=== PATIENT | male | born 1980 | race Caucasian/White ===

== ENCOUNTER 2018-04-29 07:44 | Emergency (ER) | payer OTHER ==
[2018-04-29 07:54] VITALS: BP 156/77
--- NOTE | 2018-04-29 08:44 | ED ---
Throat Pain/Nasal Congestion - HPI Summary HPI Summary: 38 yo WM c/o sore throat x 1 week, has 3 kids at home and sees white spots on his uvula and wants to know if its strep and whether if he is contagious - History of Current Complaint Chief Complaint: UCRespiratory Time Seen by Provider: 04/29/18 08:12 Hx Obtained From: Patient Onset/Duration: Sudden Onset, Lasting Days Associated Signs And Symptoms: Positive: Negative - Allergies/Home Medications Allergies/Adverse Reactions: Allergies Allergy/AdvReac Type Severity Reaction Status Date / Time No Known Allergies Allergy Verified 04/29/18 07:53 Home Medications: Home Medications Ibuprofen 400 mg PO ONCE PRN 04/29/18 [History Confirmed 04/29/18] PMH/Surg Hx/FS Hx/Imm Hx - Surgical History Surgery Procedure, Year, and Place: ear tubes as a child Infectious Disease History: No Infectious Disease History: Denies: Traveled Outside the [place] in Last 30 Days - Social History Alcohol Use: Weekly Substance Use Type: Reports: None Smoking Status (MU): Never Smoked Tobacco Review of Systems - ROS Summary Review of Systems Summary: Constitutional: Negative Eyes: Negative ENT: sore throat Cardiovascular: Negative Respiratory: Negative Gastrointestinal: Negative Genitourinary: Negative Musculoskeletal: Negative Neurological: Negative Psychological: Normal All Other Systems Reviewed And Are Negative: Yes All Other Systems Reviewed And Are Negative: Yes Physical Exam - Summary Physical Exam Summary: Triage Information Reviewed: Yes Appearance: No Pain Distress Eye Exam: Normal ENT: Positive: faint aphthous ulcers on uvula, no pharyngeal erythema Neck: Positive: shotty cervical LAD Respiratory: Positive: Lungs clear, Normal breath sounds Cardiovascular: Positive: RRR, S1, S2 Abdominal Exam: Normal Musculoskeletal Exam: Normal Neurological Exam: Normal Psychological Exam: Normal Skin Exam: Normal Vital Signs On Initial Exam: Initial Vitals Temp Pulse Resp BP Pulse Ox 36.6 C 84 18 156/77 100 04/29/18 07:49 04/29/18 07:49 04/29/18 07:49 04/29/18 07:49 04/29/18 07:49 Diagnostics - Vital Signs Vital Signs Temp Pulse Resp BP Pulse Ox 04/29/18 07:49 36.6 C 84 18 156/77 100 - Laboratory Lab Results: Lab Results 04/29/18 Range/Units 08:15 Group A Strep Rapid Negative (Negative) Lab Statement: Any lab studies that have been ordered have been reviewed, and results considered in the medical decision making process. EENT Course/Dx - Course Assessment/Plan: rapid strep neg - Diagnoses Provider Diagnoses: Aphthous ulcer of mouth Discharge - Sign-Out/Discharge Documenting (check all that apply): Patient Departure All imaging exams completed and their final reports reviewed: Yes - Discharge Plan Condition: Stable Disposition: HOME Patient Education Materials: Pharyngitis (ED) Additional Instructions: salt water gargling and over the counter Anbesol for pain - Billing Disposition and Condition Condition: STABLE Disposition: Home
== END 2018-04-29 08:45 | disposition home or self-care (01) ==
LOC: UCEAST 07:44
DX: K12.0 Recurrent oral aphthae (principal)
CPT/HCPCS: 87651; 99201; G0463